=== PATIENT | male | born 1950 | race Caucasian/White ===

== ENCOUNTER 2019-02-26 09:47 | Day surgery (SDC) | payer MEDICARE, OTHER ==
[~2019-02-26] VITALS: Ht 180.3 cm; Wt 79.2 kg
[~2019-02-26 09:47] MED LIST: ASPIRIN; CLOZARIL; GLYBURIDE; LEVOTHYROXINE; LIPITOR; METFORMIN; RISPERDAL; [UNRECOGNIZED DRUG - OTHER]
[2019-02-26 10:45] VITALS: Ht 180.3 cm; Wt 79.2 kg
[2019-02-26 11:21] VITALS: BP 145/76; PULSE 67; RESP 12
[2019-02-26] MEDS ORDERED: LIDOCAINE 100 MG SYRINGE ONE (11:38)
[2019-02-26] MEDS ORDERED: PROPOFOL 40 ML ONE (11:38)
[2019-02-26 12:19] VITALS: BP_SYST 144; BP_SYST 149; BP_DIAS 75; BP_DIAS 83; PULSE 61; PULSE 62; RESP 15; RESP 19
[2019-02-26 12:33] VITALS: BP 144/75; PULSE 61; RESP 19
== END 2019-02-26 13:41 | disposition home or self-care (01) ==
LOC: GIL 09:47
PROVIDERS: ATTEND Internal Medicine Gastroenterology
DX: Z12.11 Encounter for screening for malignant neoplasm of colon (principal); D12.5 Benign neoplasm of sigmoid colon; D12.3 Benign neoplasm of transverse colon; K64.8 Other hemorrhoids; I10 Essential (primary) hypertension; E11.9 Type 2 diabetes mellitus without complications; E03.9 Hypothyroidism, unspecified; Z79.84 Long term (current) use of oral hypoglycemic drugs
CPT/HCPCS: 45380; 82962; 88305; J2001